=== PATIENT | male | born 1950 | race Caucasian/White ===

== ENCOUNTER → 2018-03-24 08:21 | Outpatient (CLI) | payer MEDICARE, OTHER, SELFPAY ==
[2018-03-24 10:22] LABS: Alanine Aminotransferase 43 IU/L (21-72); Albumin 3.8 g/dL (3.5-5.0); Albumin Globulin Ratio 1.3 (1.0-2.8); Alkaline Phosphatase 85 U/L (38-126); Aspartate Aminotransferase 26 IU/L (17-59); BUN Creatinine Ratio 17.8 (6-22); Bilirubin Total 0.6 mg/dL (0.2-1.3); Blood Urea Nitrogen 16 mg/dL (9-20); Calcium 8.9 mg/dL (8.4-10.2); Carbon Dioxide 30 mmol/L (22-32); Chloride 103 mmol/L (98-107); Cholesterol 125 mg/dL (140-199); Estimated Glomerular Filt Rate > 60.0 mL/min (>60); Globulin 2.9 g/dL (1.7-4.1); Glucose 95 mg/dL (80-110); HDL Cholesterol 47 mg/dL (40-60); HEMOLYSIS < 15 (0-50); LDL Cholesterol Calculated 66 mg/dL (<100); Potassium 4.5 mmol/L (3.4-5.1); Sodium 142 mmol/L (137-145); Total Protein 6.7 g/dL (6.3-8.2); Triglycerides 59 mg/dL (35-150)
== END ==
PROVIDERS: PCP Physician Assistant; Visit Provider Internal Medicine Cardiovascular Disease
DX: I25.10 Atherosclerotic heart disease of native coronary artery without angina pectoris (principal)
CPT/HCPCS: 36415; 80053; 80061

== ENCOUNTER → 2018-10-24 10:00 | Outpatient (CLI) | payer MEDICARE, OTHER, SELFPAY ==
[2018-10-24 11:37] LABS: Add Manual Diff / Slide Review NO; Basophils Absolute Auto 0 /uL (0-100); Basophils Percent Auto 0.5 % (0-2); Eosinophils Absolute Auto 100 /uL (0-450); Eosinophils Percent Auto 1.1 % (2-4); Hematocrit 39.9 % (41-53); Hemoglobin 13.2 g/dL (13.5-17.5); Lymphocytes Absolute Auto 2800 /uL (1100-4500); Lymphocytes Percent Auto 28.9 % (25-40); Mean Corpuscular HGB Conc 33.2 % (30-36); Mean Corpuscular Hemoglobin 29.9 PG (26-34); Mean Corpuscular Volume 90.2 fL (80-100); Monocytes Absolute Auto 300 /uL (0-900); Monocytes Percent Auto 3.5 % (3-14); Neutrophils Absolute Auto 6500 /uL (1500-7000); Platelet Count 239 X10^3/uL (150-400); Red Blood Cell Count 4.42 X10^6/uL (4.5-5.9); Red Cell Distribution Width 14.2 % (11.6-14.8); White Blood Cell Count 9.8 X10^3/uL (4.5-11.0)
[2018-10-24 11:59] LABS: Alanine Aminotransferase 54 IU/L (21-72); Albumin 4.2 g/dL (3.5-5.0); Albumin Globulin Ratio 1.3 (1.0-2.8); Alkaline Phosphatase 76 U/L (38-126); Aspartate Aminotransferase 35 IU/L (17-59); Bilirubin Total 0.5 mg/dL (0.2-1.3); Blood Urea Nitrogen 22 mg/dL (9-20); Calcium 9.2 mg/dL (8.4-10.2); Carbon Dioxide 29 mmol/L (22-32); Chloride 105 mmol/L (98-107); Creatine Kinase 59 U/L (55-170); Estimated Glomerular Filt Rate > 60.0 mL/min (>60); Globulin 3.3 g/dL (1.7-4.1); Glucose 145 mg/dL (80-110); HEMOLYSIS < 15 (0-50); Potassium 4.3 mmol/L (3.4-5.1); Sodium 143 mmol/L (137-145); Total Protein 7.5 g/dL (6.3-8.2)
[2018-10-24 12:17] LABS: Vitamin D 25 Hydroxy (D3) 34.9 ng/mL (30.0-100.0)
[2018-10-24 12:43] LABS: Free T3, Triiodothyronine Free 4.26 pg/mL (2.77-5.27)
[2018-10-24 12:57] LABS: Thyroid Stimulating Hormone 3.83 uIU/mL (0.47-4.68)
[2018-10-24 13:01] LABS: Folate 13.1 ng/mL (2.76-20.0); Vitamin B12 604 pg/mL (239-931)
[2018-10-28 14:04] LABS: Triiodothyronine T3 Reverse 16 ng/dL (8-25)
[2018-10-28 16:36] LABS: Anti Thyroglobulin Antibody < 1 IU/mL (< 2); Thyroid Peroxidase Antibodies 4 IU/mL (< 9)
[2018-10-28 17:03] LABS: T4,Free, Direct Dialysis 1.5 ng/dL (0.9-2.2)
[2018-10-29 21:59] LABS: Magnesium, RBC 5.8 mg/dL (4.0-6.4)
== END ==
PROVIDERS: PCP Physician Assistant; Visit Provider Physical Medicine & Rehabilitation Pain Medicine
DX: E03.9 Hypothyroidism, unspecified (principal); E55.9 Vitamin D deficiency, unspecified; R53.83 Other fatigue
CPT/HCPCS: 36415; 80053; 82306; 82550; 82607; 82746; 83735; 84439; 84443; 84481; 84482; 85025; 86376; 86800

== ENCOUNTER 2018-10-30 14:08 | Outpatient (RCR) | payer MEDICARE, OTHER, SELFPAY ==
--- NOTE | 2018-10-30 15:15 | PT.OIE ---
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, right leg, subsequent encounter (10/30/18) Provider Visit Care Team Role Provider Type Candy Peraza PA-C Primary Care Provider Physician Specialty: Internal Medicine Address: [address] [place] [address], [id number] Email: Abby Luong PA-C Attending Provider Advanced Consultant Intern Specialty: Internal Medicine Address: [address] [place] [address], [id number] Email: Physical Therapy Initial Evaluation PT-OP-A Visit Information Start: 10/30/18 15:32 Freq: Status: Active Protocol: Document 10/30/18 14:30 DCW (Rec: 10/30/18 15:58 DCW [id number]) Out-Patient Physical Therapy Visit Information Visit Information Visit Type Initial Evaluation Visit Start Time 14:30 Visit Stop Time 15:22 Total Visit Minutes 52 Visit Number 1 Number of TUFTER Visits 0 Evaluation Information Evaluation Date 10/30/18 PT-OP-B Current Condition Start: 10/30/18 15:32 Freq: Status: Active Protocol: Document 10/30/18 14:30 DCW (Rec: 10/30/18 15:58 DCW [id number]) Current Condition History of Current Condition Onset Date 3 months Current Complaints Right LE radicular symptoms both anterior and posterior History of Current Condition Pt is a 68 year old male presenting with a three month history of hip and leg pain after an incident when he attempted to lift a 5 gallon bucket of stain out of his truck. Pt reports he walked a few steps, realized it was too heavy, and set it down, however he has had worsening leg pain ever since. Pt reports his pain is mainly in his anterior hip and groin, and radiates down his anterior leg to his knee, however he also reports posterior hip pain radiating down his posteriolateral upper leg to his knee. Pt notes that it almost feels like the muscles are tightening so much that it just causes pain and fatigue in my leg. Pt additionally notes that his hip seems to lock up quite a bit. Pt reports that after a visit to a pain doctor down in [place], he is planning on getting an MRI to see if it uncovers any problems. 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 Future Testing and Treatments Planned Likely upcoming MRI Treatment Goals Patient/Caregiver Goals Return to his normal functional activities such as working out in his yard. Prior Functional Status Baseline Function- ADL's Modified Independent Baseline Function- Mobility Modified Independent Baseline Function- Gait Pt ambulates with a probing cane Current Functional Impairments (Reported) Functional Limitations- Recreation/ Pt limited to ~25 minutes Hobbies working out in yard before he needs to stop due to pain. Personal Factors Other Personal Factors That May Effect Parkinson's disease, visual Therapy/Recovery impairment PT-OP-C Subjective Start: 10/30/18 15:32 Freq: Status: Active Protocol: Document 10/30/18 14:30 DCW (Rec: 10/30/18 15:58 DCW [id number]) OP-PT Subjective Patient Comments Patient Comments I was waiting for this pain to get better, but it seems to be getting worse. Patient Reported Progress Worse OP-PT Pain Assessment Pain Assessment Grid Paper Pain Assessment Grid Completed Yes Location Right Lateral Hip Intensity 8 Scale Used Numeric (1 - 10) Radiating Location Radiating down anterior and posteriolateral upper leg PT-OP-F Manual Assessment Start: 10/31/18 08:50 Freq: Status: Active Protocol: Document 10/30/18 14:30 DCW (Rec: 10/31/18 08:52 DCW [id number]) Manual Assessments Soft Tissue Assessment Soft Tissue Mobility Assessment Pt displays tenderness to palpation 3/4 = Wincing and withdraw on his right piriformis, as well as moderate tone noted Joint Mobility Assessment Joint Mobility Assessment No tenderness or complaints of increased symptoms with palpation or mobilization of lumbar vertebrae PT-OP-L Special Tests Start: 10/30/18 15:32 Freq: Status: Active Protocol: Document 10/30/18 14:30 DCW (Rec: 10/31/18 08:50 DCW [id number]) Special Tests Lumbar Spine Special Tests Vertical Spine Loading Test Results Negative Straight Leg Raise Test Results Posterior hip pain (right) Slump Test Results Negative Compression Test Results Negative Hip Special Tests Scour Test Test Results Anterior groin pain Piriformis Test Results Pain down posterior leg KEENAN Test Results Lateral hip pain (right) PT-OP-M Strength Start: 10/30/18 15:32 Freq: Status: Active Protocol: Document 10/30/18 14:30 DCW (Rec: 10/31/18 08:50 DCW [id number]) Hip Strength Hip Manual Muscle Testing Right Flexion (L2) 4+ Good+ Abduction 4 Good Adduction 4+ Good+ External Rotation 4 Good Internal Rotation 4 Good Left Flexion (L2) 5 Normal Abduction 5 Normal Adduction 5 Normal External Rotation 5 Normal Internal Rotation 5 Normal Knee Strength Knee Manual Muscle Testing Right Flexion (S2) 5 Normal Extension (L3) 5 Normal Left Flexion (S2) 5 Normal Extension (L3) 5 Normal PT-OP-Q Treatments Start: 10/30/18 15:32 Freq: Status: Active Protocol: Document 10/30/18 14:30 DCW (Rec: 10/31/18 08:50 DCW [id number]) Therapeutic Exercises Sitting Exercises Piriformis stretch Sitting Exercise Name Seated figure-4 Side bilateral PT-OP-T Assessment and Plan Start: 10/30/18 15:32 Freq: Status: Active Protocol: Document 10/30/18 14:30 DCW (Rec: 10/31/18 08:50 DCW [id number]) Physical Therapy Assessment Rehab Potential Rehabilitation Potential Fair Evaluation Complexity Number of Personal Factors/Comorbidities 3 or More Number of Body Systems Impaired 4 or More Clinical Presentation at Evaluation Unstable Impairments Impairments Activity Tolerance Functional Activities Functional Mobility Pain ROM Soft Tissue Mobility Strength Tone Other Concerns Barriers to Rehabilitation Parkinson's disease, visual impairment, depression, Hx of falls Goals Four Impairment Positive special testing Cleaner Furniture Goal (LTG) Negative SLR, KEENAN, and Scour tests LTG Duration 12/28/18 Three Impairment Right LE weakness Cleaner Furniture Goal (LTG) R LE MMT to equal L LE MMT LTG Duration 12/28/18 Two Impairment Pt unable to tolerate yard work more than 25 minutes Cleaner Furniture Goal (LTG) Pt to tolerate two hours of yard work without increased pain LTG Duration 12/28/18 One Impairment Pt does not have an appropriate Home Exercise Program Short Term Goal (STG) Pt to be independent and compliant with an appropriate HEP STG Duration 11/30/18 Assessment Summary Assessment Pt presents with multiple complaints and symptoms which make DDx between Piriformis syndrome and Acetabular labrum dysfunction difficult. Pts complaints of his hip locking up, sharp groin pain radiating into his anterior thigh, and a positive scour test are all suggestive of a labral tear, however his complaints of posterior hip pain at rest and with SLR and KEENAN, as well as tenderness to palpation of the Piriformis are suggestive of Piriformis syndrome. There is a possibility that pt injured his labrum, which led to protective spasming of his piriformis, which could explain the majority of his symptoms. Pt should benefit from skilled therapy focused on improving ROM and flexibility, LE strengthening, pain control, and improved activity tolerance, however with the potential of a labral tear, pt may also benefit from an MRI, which he reports the and his were already planning to schedule after his appointment earlier this week down at a pain clinic in [place]. Physical Therapy Plan Frequency and Duration Frequency of Treatment 2x/Week Duration of Treatment 12 weeks Plan of Care Start Date 10/30/18 Plan of Care End Date 01/22/19 Therapeutic Interventions Therapeutic Interventions Aquatic Therapy Home Exercise Program Joint Mobilizations Manual Therapy Neuromuscular Re-education Patient/Caregiver Education Soft Tissue Mobilization Therapeutic Activities Therapeutic Exercises Modalities Cold Pack/Ice Massage Electric Stimulation Hot Packs Ultrasound Next Visit Focus/Plan Next Note Type Treatment Note Next Visit Plan Manual therapy, flexibility, LE strengthening
--- NOTE | 2018-10-30 15:16 | PT.OPPOC ---
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, right leg, subsequent encounter (10/30/18) Provider Visit Care Team Role Provider Type Candy Peraza PA-C Primary Care Provider Physician Specialty: Internal Medicine Address: [address] [place] [address], [id number] Email: Abby Luong PA-C Attending Provider Advanced Motor Coach Chauffeur Specialty: Internal Medicine Address: [address] [place] [address], [id number] Email: Plan Of Care PT-OP-T Assessment and Plan Start: 10/30/18 15:32 Freq: Status: Active Protocol: Document 10/30/18 14:30 DCW (Rec: 10/31/18 08:50 DCW [id number]) Physical Therapy Assessment Rehab Potential Rehabilitation Potential Fair Evaluation Complexity Number of Personal Factors/Comorbidities 3 or More Number of Body Systems Impaired 4 or More Clinical Presentation at Evaluation Unstable Impairments Impairments Activity Tolerance Functional Activities Functional Mobility Pain ROM Soft Tissue Mobility Strength Tone Other Concerns Barriers to Rehabilitation Parkinson's disease, visual impairment, depression, Hx of falls Goals Four Impairment Positive special testing Climbing Guide Goal (LTG) Negative SLR, KEENAN, and Scour tests LTG Duration 12/28/18 Three Impairment Right LE weakness Assisted Goal (LTG) R LE MMT to equal L LE MMT LTG Duration 12/28/18 Two Impairment Pt unable to tolerate yard work more than 25 minutes Climbing Guide Goal (LTG) Pt to tolerate two hours of yard work without increased pain LTG Duration 12/28/18 One Impairment Pt does not have an appropriate Home Exercise Program Short Term Goal (STG) Pt to be independent and compliant with an appropriate HEP STG Duration 11/30/18 Assessment Summary Assessment Pt presents with multiple complaints and symptoms which make DDx between Piriformis syndrome and Acetabular labrum dysfunction difficult. Pts complaints of his hip locking up, sharp groin pain radiating into his anterior thigh, and a positive scour test are all suggestive of a labral tear, however his complaints of posterior hip pain at rest and with SLR and KEENAN, as well as tenderness to palpation of the Piriformis are suggestive of Piriformis syndrome. There is a possibility that pt injured his labrum, which led to protective spasming of his piriformis, which could explain the majority of his symptoms. Pt should benefit from skilled therapy focused on improving ROM and flexibility, LE strengthening, pain control, and improved activity tolerance, however with the potential of a labral tear, pt may also benefit from an MRI, which he reports the and his wwife were already planning to schedule after his appointment earlier this week down at a pain clinic in [place]. Physical Therapy Plan Frequency and Duration Frequency of Treatment 2x/Week Duration of Treatment 12 weeks Plan of Care Start Date 10/30/18 Plan of Care End Date 01/22/19 Therapeutic Interventions Therapeutic Interventions Aquatic Therapy Home Exercise Program Joint Mobilizations Manual Therapy Neuromuscular Re-education Patient/Caregiver Education Soft Tissue Mobilization Therapeutic Activities Therapeutic Exercises Modalities Cold Pack/Ice Massage Electric Stimulation Hot Packs Ultrasound Next Visit Focus/Plan Next Note Type Treatment Note Next Visit Plan Manual therapy, flexibility, LE strengthening Plan of Care Dates Plan of Care Start Date 10/30/18 Plan of Care End Date 01/22/19 Please Sign and Return: I have reviewed this Plan of Care and certify that the skilled therapy services above are required to meet the patient?s needs. Physician Signature Date Printed Name and Credentials Clinical Instructor Signature Printed Name and Credentials
--- NOTE | 2018-11-25 11:34 | PT.OPDS ---
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, right leg, subsequent encounter (10/30/18) Provider Visit Care Team Role Provider Type Candy Peraza PA-C Primary Care Provider Physician Specialty: Internal Medicine Address: [address] [place] [address], [id number] Email: Abby Luong PA-C Attending Provider Advanced Residential Installer Specialty: Internal Medicine Address: [address] [place] [address], [phone] Email: Visit Number Visit Number 1 Discharge Summary PT-OP-T Assessment and Plan Start: 10/30/18 15:32 Freq: Status: Active Protocol: Document 11/25/18 11:31 DCW (Rec: 11/25/18 11:34 DCW [id number]) Physical Therapy Assessment Assessment Summary Assessment Unfortunately, pt three days after his evaluation. Physical Therapy Plan Discharge Physical Therapy Discharge Comments Pt on 11/02/18
== END 2018-11-25 12:46 ==
LOC: PHYS 14:08
PROVIDERS: PCP Physician Assistant; Visit Provider Physician Assistant
DX: M54.41 Lumbago with sciatica, right side (principal); S73.191D Other sprain of right hip, subsequent encounter; M79.604 Pain in right leg; S74.01XD Injury of sciatic nerve at hip and thigh level, right leg, subsequent encounter
CPT/HCPCS: 97110; 97163